=== PATIENT | female | born 1995 | race Caucasian/White ===

== ENCOUNTER 2020-09-06 08:16 | Outpatient (CLI) | payer MEDICAID, SELFPAY ==
--- NOTE | 2020-09-06 08:24 | FL_ITS ---
WS: [id number] UPPER GI WITH AIR TECHNICAL: Double contrast upper GI with thin and thick barium. FLUOROSCOPY TIME: 2.6 minutes CLINICAL INFORMATION: Z71.89 - Other specified counseling COMPARISON: None. FINDINGS: Swallowing: Normal. Esophagus: Normal esophageal motility. No stricture or obstructing mass. Gastroesophageal reflux: Small amount of reflux is observed in the supine position into the distal es ophagus. Tiny esophageal hiatal hernia. Stomach: Normal double contrast stomach. Duodenum: Normal duodenal C-loop. Other findings: Cholecystectomy clips. FL/FL upper GI w air* [id number] IMPRESSION: 1. Normal esophageal motility. No stricture or obstructing mass. 2. Small amount of reflux in the supine position with a tiny esophageal hiatal hernia. 3. Double contrast stomach and duodenal C-loop are normal.
== END 2020-09-06 08:17 | disposition home or self-care (01) ==
PROVIDERS: PCP Nurse Practitioner; Visit Provider Surgery
DX: Z71.89 Other specified counseling (principal); K21.9 Gastro-esophageal reflux disease without esophagitis; K44.9 Diaphragmatic hernia without obstruction or gangrene
CPT/HCPCS: 74246

== ENCOUNTER → 2020-11-02 11:08 | Outpatient (BNVA) | payer MEDICAID, SELFPAY | PROVIDERS: PCP Nurse Practitioner; Visit Provider Surgery | DX: Z20.822 Contact with and (suspected) exposure to COVID-19 (principal) | CPT/HCPCS: 87635 ==

== ENCOUNTER 2020-11-07 08:14 | Day surgery (SDC) | payer MEDICAID, SELFPAY ==
[2020-11-05 15:08] VITALS: BMI 19.7
--- NOTE | 2020-11-07 08:28 | W.PM.OPSFHP ---
Same Day Surgery H&P Indication for Procedure/HPI DATE OF PROCEDURE: November 07, 2020 CHIEF COMPLAINT/INDICATIONFOR SURGICAL PROCEDURE: I am here for endoscopy PREOP DIAGNOSIS: Prebariatric surgery screening PLANNED PROCEDRUE: Operation Date: 11/07/20 09:45 Proposed Procedures p EGD with poss biopsy 65616 k21.9(Not Applicable) - Hussein Portillo MD This is a pleasant 25 years old for this is a pleasant 25 years old female patient morbidly obese with a BMI around 50, undergone upper GI study in preparation for weight loss surgery that showed; 1. Normal esophageal motility. No stricture or obstructing mass. 2. Small amount of reflux in the supine position with a tiny esophageal hiatal hernia. 3. Double contrast stomach and duodenal C-loop are normal. Based on that patient was counseled for preop EGD ROS All systems have been reviewed negative except as per the above or per problem list Medications/Allergies* Home Medications Medication Instructions Recorded Confirmed Type bupropion HCl 150 mg tablet,12 hr 150 mg PO BID 08/30/20 11/07/20 History sustained-release Allergies/Adverse Reactions Allergy/AdvReac Type Severity Reaction Status Date / Time No Known Allergies Allergy Verified 11/07/20 10:08 Pertinent History/Comorbid Conditions* Family History (Updated 05/17/20 @ 15:46 by Heidy Andrews RN) Diabetes Grandfather Hyperlipidemia Grandfather Hypertension Grandfather Denies family history of Anesthesia complication Bleeding disorder Social History Smoking and tobacco status: never smoked Pertinent Exam Findings alert, clear to auscultation bilaterally, regular rate & rhythm and procedure specific exam findings (Abdominal examination nontender nondistended soft) Recommendations Surgery/Procedure today (EGD with possible biopsy) Other Plans: Plan of care; After thorough history and physical examination and reviewing the chart, plan to perform a diagnostic esophagogastroduodenoscopy with possible biopsy in the GI lab. I discussed with the patient in detail the risk,benefits,alternatives and indications.The risk of aspiration, bleeding, soft tissue injury, perforation of the stomach/esophagus and other potential concomitant complications were explained to the patient in details,aslo the potential need for Thoracic and or Abdominal surgery to repair any complications.The patient understood this well and did agree to proceed. Rationale was carefully and clearly discussed with the patient.Appropriate informed consent have been reviewed and signed All questions have been answered and all concerns have been addressed to patient's satisfaction. Coding Level of Care Code Acute Anthropology And Archeology Instructor for Elijah Dye
[2020-11-07 08:42] VITALS: BP 126/83; PULSE 73; RESP 18; TEMP 36.1; O2SAT 98; BMI 52.0
[2020-11-07] MEDS: sodium chloride 0.9% 1,000 ML 30 ML IV (09:08)
--- NOTE | 2020-11-07 09:36 | ANES.PREANE2 ---
Pre-Anesthetic Assessment Pre-Anesthetic Assessment: Height/Weight: Height 1.68 m Weight 146.057 kg Temp Pulse Resp BP Pulse Ox 97.0 F L 73 18 126/83 98 11/07/20 08:42 11/07/20 08:42 11/07/20 08:42 11/07/20 08:42 11/07/20 08:42 Preop Diagnosis: Prebariatric surgery screening Proposed Procedure: Operation Date: 11/07/20 09:45 Proposed Procedures p EGD with poss biopsy 25167 k21.9(Not Applicable) - Hussein Portillo MD Familial anesthetic complications: none Was Beta Latrice taken within 24 hours: N/A Was Clonidine taken within 24 hours: N/A Last intake: Intake Last Liquid Date 11/06/20 Last Liquid Time 23:00 Last Solid Date 11/06/20 Last Solid Time 18:00 Social: Social History: No alcohol and No tobacco Exam: Pre-Anes Outpt Exam: alert, oriented x 3, clear to auscultation bilaterally and regular rate & rhythm Airway: Submandibular: WNL Cervical ROM: WNL MP: 2 Dentition: Full History/ROS: No significant history except as noted Pulmonary: Pulmonary: None reported CV/HEM: CV/HEM: None reported : : None reported Hepatic: Hepatic: None reported GI: GI: None reported Metabolic: Metabolic: Morbid obesity and None reported Musc/skel: Musc/skel: None reported Neuropsych: Neuropsych: Anxiety and Depression Anesthetic Plan: ASA status: 3 Anesthesia: MAC Risk of > 500 ml blood loss (7ml/kg in children): No Meds/Allergies Current Medications: Current Medications Generic Name Dose Route Start Last Admin Trade Name Freq PRN Reason Stop Dose Admin Sodium Chloride 1,000 mls @ 30 ml s/hr 11/07/20 08:45 11/07/20 09:08 Sodium Chloride 0.9% IV 11/08/20 08:44 30 mls/hr .Q24H EARLINE Administration PFSH Anesthesia PFSH: Family History Grandfather Diabetes Hypertension Hyperlipidemia Denies family history of Anesthesia complication Bleeding disorder Social History Smoking and tobacco status: never smoked Data Anesthesia Cardiac Studies: No Data to Display
[2020-11-07 11:05] VITALS: BP 133/75; PULSE 72; RESP 16; TEMP 36.2; O2SAT 99
[2020-11-07 11:15] VITALS: BP 110/74; PULSE 77; RESP 16; O2SAT 99
--- NOTE | 2020-11-07 11:27 | ANE.PACU2 ---
Inpatient post-anesthesia follow up: Airway intact: Yes Vital signs: Temperature 97.2 F Pulse Rate 77 Respiratory Rate 16 Blood Pressure 110/74 Pulse Oximetry 99 Oxygen Delivery Me thod Room Air Oxygen Flow Rate Fraction of Inspir ed Oxygen Hydration adequate: Yes Mental status: Baseline
[2020-11-08 06:35] LABS: H. Pylori / CLO Test Negative
== END 2020-11-07 11:38 | disposition home or self-care (01) ==
PROVIDERS: PCP Nurse Practitioner; Visit Provider Surgery
PROC: 0DJ08ZZ Inspection of Upper Intestinal Tract, Via Natural or Artificial Opening Endoscopic (ICD-10-PCS; CPT 43235; principal; 2020-11-07 09:45)
DX: K21.9 Gastro-esophageal reflux disease without esophagitis (principal); K29.70 Gastritis, unspecified, without bleeding; K29.80 Duodenitis without bleeding; E66.01 Morbid (severe) obesity due to excess calories; Z68.43 Body mass index [BMI] 50.0-59.9, adult
CPT/HCPCS: 43239; 87077; 96360; 96361; J2704; J7030

== ENCOUNTER → 2021-07-17 13:31 | Outpatient (BNVA) | payer MEDICAID, SELFPAY | PROVIDERS: PCP Family Medicine; Visit Provider Surgery | DX: E66.01 Morbid (severe) obesity due to excess calories (principal) ==

== ENCOUNTER 2021-07-17 15:17 | Outpatient (CLI) | payer MEDICAID, SELFPAY ==
[2021-07-17 16:10] LABS: Basophils % 0.5 %; Eosinophils # 0.1 10^3/uL (0.0-0.8); Eosinophils % 1.8 %; Hematocrit 39.5 % (37.0-47.0); Hemoglobin 12.8 g/dL (11.5-15.3); Lymphocytes # 1.6 10^3/uL (0.8-4.8); Lymphocytes % 28.5 %; Mean Corpuscular HGB Conc 32.4 g/dL (30.0-36.0); Mean Corpuscular Hemoglobin 27.1 pg (28.0-34.0); Mean Corpuscular Volume 83.5 fl (81-99); Mean Platelet Volume 10.5 fL (7.4-10.4); Monocytes # 0.6 10^3/uL (0.2-0.9); Monocytes % 9.9 %; Neutrophils # 3.33 10^3/uL (1.8-7.7); Neutrophils % 59.1 %; Nucleated Red Blood Cells % 0 %; Platelet Count 295 10^3/cmm (130-400); Red Blood Count 4.73 10^6/uL (4.1-5.3); Red Cell Distribution Width 13.8 % (12.1-15.1); White Blood Count 5.6 10^3/uL (4.0-10.0)
[2021-07-17 16:50] LABS: Alanine Aminotransferase 18 U/L (0-33); Albumin Level 4.4 g/dL (3.5-5.2); Alkaline Phosphatase 68 IU/L (35-105); Anion Gap 17.2 (5-19); Aspartate Amino Transferase 13 U/L (0-32); Blood Urea Nitrogen 16 mg/dL (6-20); Calcium 10.1 mg/dL (8.5-10.5); Carbon Dioxide 23 mmol/L (22-29); Chloride 103 mmol/L (98-107); Chol HDL Ratio 4.55 mg/dL (0.0-4.40); Cholesterol 150 mg/dL (0-200); Ferritin 109 ng/mL (15-150); Globulin 3.4 g/dL (1.3-4.6); Glomerular Filtration Rate 76.9 mL/min (90-130); Glucose 89 mg/dL (65-115); HDL Cholesterol 33 mg/dL (60-100); Iron 39 ug/dL (37-145); LDL Cholesterol Calculated 101 mg/dL (50-129); LDL HDL Ratio 3.06 RATIO (0.00-3.22); Magnesium 1.7 mg/dL (1.7-2.3); Osmolality Calculated 289 mOsm/kg (285-295); Percent Saturation 14.2 % (20-50); Potassium 4.2 mmol/L (3.5-5.1); Sodium 139 mmol/L (136-145); Thyroid Stimulating Hormone 0.61 uIU/mL (0.27-4.20); Total Bilirubin 0.3 mg/dL (0.15-1.2); Total Iron Binding Capacity 273 mcg/dl; Total Protein 7.8 g/dL (6.6-8.7); Triglycerides 82 mg/dL (0-150); Unsaturated Iron Binding 234 ug/dL (112-347); Vitamin B12 586 pg/mL (232-1245)
[2021-07-17 17:32] LABS: Folate Level 7.7 ng/mL (4.8-37.3)
[2021-07-17 17:37] LABS: Calcium 10.2 mg/dL (8.5-10.5); Parathyroid Hormone 16.4 pg/mL (15-65)
[2021-07-21 09:57] LABS: Zinc Level, Serum or Plasma 69 mcg/dL (60-130)
[2021-07-21 13:51] LABS: Vit D 1,25 (Oh)2, Total 33 pg/mL (18-72); Vit D2 1,25 (Oh)2 <8 pg/mL; Vit D3 1,25 (Oh)2 33 pg/mL
[2021-07-21 14:02] LABS: Vitamin B1(Thiamin) Plas/Ser <7 nmol/L (8-30)
== END 2021-07-17 15:18 | disposition home or self-care (01) ==
LOC: LAB 15:20
PROVIDERS: PCP Family Medicine; Visit Provider Surgery
DX: E88.81 Metabolic syndrome and other insulin resistance (principal)
CPT/HCPCS: 36415; 80053; 80061; 82310; 82607; 82652; 82728; 82746; 83540; 83550; 83735; 83970; 84425; 84443; 84630; 85025

== ENCOUNTER 2021-07-23 09:29 | Inpatient (IN) | payer MEDICAID, SELFPAY ==
[2021-07-17 14:45] VITALS: BMI 47.4
--- NOTE | 2021-07-17 15:00 | P.ANESASSM_ITS ---
Pre-Anesthetic Assessment Height/Weight: Height 1.68 m Weight 133.356 kg Preop Diagnosis: Prebariatric surgery screening Operation Date: 07/23/21 07:00 Proposed Procedures p Laparoscopic Gastric Sleeve w/ EGD [id number]/39281/e66.01(Not Applicable) - Hussein Portillo MD Familial anesthetic complications: None Was Beta Latrice taken within 24 hours: N/A Was Clonidine taken within 24 hours: N/A Social No alcohol and No tobacco (h/o smoking) Exam alert, oriented x 3, clear to auscultation bilaterally and regular rate & rhythm Airway Submandibular: within normal limits Cervical ROM: within normal limits Mallampati: Class II Dentition: full Pulmonary Sleep Apnea GI Gastroesophageal Reflux Disease Metabolic Morbid Obesity and Thyroid Disease Neuropsych Anxiety, Bipolar and Depression Anesthetic Plan ASA status: 3 Anesthesia: General Medications/Allergies Home Medications Medication Instructions Recorded Confirmed Last Taken Type risperidone 0.5 mg tablet 0.5 mg PO BID 02/27/21 07/17/21 07/17/21 History levothyroxine 25 mcg capsule 75 mcg PO DAILY cap 04/10/21 07/17/21 07/17/21 H istory hydroxyzine HCl 25 mg tablet 25 mg PO TID PRN 06/11/21 07/17/21 07/16/21 History phentermine 37.5 mg capsule 37.5 mg PO DAILY 06/11/21 07/17/21 07/15/21 History Allergies Allergy/AdvReac Type Severity Reaction Status Date / Time No Known Allergies Allergy Verified 07/17/21 14:03 [facility] Anesthesia Medical History BMI 50.0-59.9, adult Morbid obesity HIREN (obstructive sleep apnea) Psychiatric care Family History Grandfather Diabetes Hypertension Hyperlipidemia Denies family history of Anesthesia complication Bleeding disorder Social History Smoking and tobacco status: former smoker Female Reproductive History Date of last menstrual period: 07/02/21 Data Anesthesia Cardiac Studies: No Data to Display
[2021-07-23] VITALS (25 sets, daily range): BP systolic 97–143; BP diastolic 49–96; PULSE 68–90; RESP 13–18; TEMP 36.4–37.4; O2SAT 85–99; BMI 47.1
--- NOTE | 2021-07-23 06:05 | W.PM.OPSUD ---
Surgery/Procedure H&P Update DATE OF PROCEDURE: July 23, 2021 DATE H&P PERFORMED: 07/17/21 H&P UPDATE INFORMATION: I have reviewed H&P completed within last 30 days, I have examined patient prior to procedure and Changes to prior documentation as noted here CHANGES TO PREVIOUS DOCUMENTATION: Patient reports that she lost 17 pounds since she was started on liquid protein diet. PREOP DIAGNOSIS: Prebariatric surgery screening PRIMARY INDICATION FOR PROCEDURE: The same PLANNED PROCEDURE: Operation Date: 07/23/21 07:00 Proposed Procedures p Laparoscopic Gastric Sleeve w/ EGD [id number]/e66.01(Not Applicable) - Hussein Portillo MD
[2021-07-23 06:10] LABS: OR HCG Qualitative Urine Negative (Negative)
[2021-07-23] MEDS: pantoprazole 40 mg SDV IVP (06:25)
[2021-07-23] MEDS: sodium chloride 0.9% 1,000 ML 999 ML IV (06:25)
[2021-07-23] MEDS: scopolamine 1.5 Patch 1 PATCH TRANSDERMA (06:30)
[2021-07-23] MEDS: acetaminophen 1,000 MG/100 ML PIGGYBACK 400 MG IV ×2 (06:30→15:25)
[2021-07-23] MEDS: heparin 5,000 unit/mL INJ 1 mL 5000 UNIT SUBCUT (06:35)
--- NOTE | 2021-07-23 06:54 | P.ANESUD_ITS ---
Pre-Anesthetic Update Pre-Anesthetic Assessment: Date of Surgery/Procedure: 07/23/21 Preop Lyndsey gnosis: Prebariatric surgery screening Proposed Procedure: Operation Date: 07/23/21 07:00 Proposed Procedures p Laparoscopic Gastric Sleeve w/ EGD [id number]/[id number]/e66.01(Not Applicable) - Hussein Portillo MD Any changes to Pre-Anesthetic Assessment?: No Last Intake: Intake Last Liquid Date 07/22/21 Last Liquid Time 23:20 Last Solid Date 07/22/21 Last Solid Time 11:00 Vitals: Temperature 97.8 F 07/23/21 06:04 Temperature Source Temporal Artery S can 07/23/21 06:04 Pulse Rate 80 07/23/21 06:04 Respiratory Rate 16 07/23/21 06:04 Blood Pressure 98/87 07/23/21 06:04 Blood Pressure Olya n 90 07/23/21 06:04 Pulse Oximetry 97 07/23/21 06:04 Oxygen Delivery Me thod 07/23/21 06:04 Exam: Pre-Anes Outpt Exam: alert, oriented x 3, clear to auscultation bilaterally and regular rate & rhythm Cardiac Studies: No Data to Display
[2021-07-23] MEDS: sodium chloride 0.9% 1,000 ML 30 ML IV (07:10)
[2021-07-23] MEDS: ceFAZolin 1,000 mg SDV 1000 MG IVP (07:15)
[2021-07-23] MEDS: sodium chloride 0.9% 50 ML (08:13)
--- NOTE | 2021-07-23 08:28 | SUR.OPER ---
family updated of surgical status
--- NOTE | 2021-07-23 09:07 | SUR.OPER ---
family updated of surgical status
--- NOTE | 2021-07-23 09:14 | P.OP_ITS ---
Operative Report Date of procedure: July 23, 2021 Pre-op diagnosis: Preop Diagnosis obesity Post-op diagnosis: The same Procedure done: Laparoscopic vertical sleeve gastrectomy and EGD Implants: Small piece of Surgicel towards the superior pole of the Specimens removed/disposition: Subtotal gastrectomy with sutures marked proximal with gastric sleeve Surgeon: Hussein Portillo MD Assistant Activities Director: Surgical Edwin Dailey Anesthesia: General (GETA TECHNICAL TRAINING INSTRUCTOR Corrina) Estimated blood loss (mL): 20 IV fluids (mL): 2,200 Urine output: 100 Procedure: Patient was identified in the holding area, appropriate pharmacologic DVT prophylaxis was given and preoperative IV fluid hydration, patient was then taken to the operating room where the patient was placed in supine position, intubated by anesthesia prophylactic antibiotics were given per protocol, Time- out was done verifying the patient's name/date of /planned procedure and destination after the procedure, all were in agreement.SCDs confirmed to be functioning, and beta kentrell protocol was confirmed. A Benson catheter was inserted by the circulating nurse revealing clear urine. A foot board was applied to secure the patient while the patient is placed in reversed Trendelenburg, all pressure points were padded, and the patient was appropriately secured to the table, anesthesia was asked to rotate the table back and forth to verify that the patient is appropriately secured, and that was the case. The abdomen was prepped and draped under the usual sterile technique. A transverse incision was made with a 15 blade scalpel approximately 15 cm below the xiphoid process and 3 cm left of the midline. A 5 mm optical trocar port was placed under direct vision into the peritoneal cavity without initial evidence of injury to peritoneal structures upon entry. The peritoneal cavity was insufflated with carbon dioxide gas up to 15 mmHg pressure. A 45? angle laparoscopy was placed through the port into the peritoneal cavity there was no significant blood, fluid, or evidence of intra- abdominal injury under direct visualization, Longer trocars were then used; a 12 mm trocar port was placed in the right epigastric region and a fourth 5 mm trocar port was placed in the mid epigastric region more caudad than and medial to the previous port. A 5 mm trocar port was placed in the left lateral flank and additional 5 mm trocar was inserted midway between the left lateral flank trocar and the initial 5 mm trocar. There after the index 5 mm trocar was switched to a 12 mm trocar under direct visualization after extending the skin incision. I lifted the omentum up to make sure there were no injuries encountered from the initial trocar insertion, the underlying transverse colon and small bowel viscera were normal, except for a very superficial tear of the mesentery of the proximal small bowel without bleeding but I elected to put at 2-0 silk suture secure hemostasis, there was no violation of the mesentery blood supply and the bowel maintained to be viable. A subxiphoid stab incision was made and dissection into the peritoneum with 5 mm obturator. A grasping laparoscopic clamp was inserted through here and clamped to the right mat of the diaphragm to elevate the liver for the entirety of the case. All trocars inserted were long arc trocars due to the thick layer of subcutaneous tissue that the patient has.Patient was then placed in the reversed Trendelenburg. Following this, the greater curvature of the stomach was freed from the omentum using the ENSEAL device. This division included the short gastric vessels proximally. This dissection was carried from approximately 4 cm-6 cm proximal to the pylorus and extending all the way up to the angle of Hiss. During this process the posterior aspect of the stomach was mobilized from the underlying peritoneum and the posterior aspect of the stomach was well exposed. With the greater curvature of the stomach exposed from within 4-6 cm of the pylorus and extending to the angle of Hiss, which also included the posterior stomach, a 40 Swedish standard template passed under direct vision down the esophagus, stomach, and into the first part of the duodenum by the anesthesia provider and under direct guidance and visualization by me, via the laparoscopy. Using the template 40 Swedish aligned along the lesser curvature of the stomach and all the way to the first part of the Duodenum, the 40 Swedish Bougie was used as a template the laparoscopic vertical gastric sleeve was performed starting from a point about 5 cm from the pylorus along the greater curvature. Using the [employer] Laparoscopic BALDEMAR linear cutting stapler with [employer] Endopath enforcement, a series of jaylon were used to transect the stomach in a vertical fashion along the left side of the template. Through the entire division of the stomach using the staplers, the template was always checked to be in good place and well aligned to the lesser curvature while dividing the stomach. This was carried all the way to the angle of Hiss. [place] 60 mm Green loads were used for the distal third of the stomach and Gold loads were used for the more proximal part of the stomach and then blue loads with reinforcement. All staplers were reinforced by Endopath. The staple line along the remaining tubularized stomach was tested for leaks and bleeding under direct vision as the 40 Swedish template was exchanged (and there was no evidence of blood on the tip of the template) by a standard diagnostic EGD via the mouth by my me after I scrubbed out, insufflation was achieved using CO2 gas and the staple line submerged under saline, meanwhile a clamp was applied distally onto the end of the tubularized stomach to allow insufflation test for leak. There was no evidence of leak .There was adequate hemostasis along the staple line.EGD was taken out at this point after deflation of the tubularized stomach. I scrubbed the back in. The transected partial stomach, which included the greater curvature, was removed from the peritoneum through the first 12 mm trocar site, and was sent for permanent pathology. Prior to closure of the fascia. A final look laparoscopy identified no injuries or bleeding. There was minimal oozing at the time of the dissection of the short gastrics earlier but that was controlled by using Enseal device and a small piece of Surgicel was added. Towards the superior pole of the spleen Bilateral TAP (transversus abdominous plain peripheral nerve block) block using Exparel 20 mL Exparel,40 ml Normal saline,20 ml bupivacaine 0.25% 30 mL on each side injected, 20 mL injected the port sites. An interrupted #1 PDS suture on a granny needle suture passer was used to close the right epigastric and the other 12 mm trocar left of the midline fascial defects under direct visualization. The other trocars were removed under direct vision and no evidence of bleeding was identified. The pneumoperitoneum was decompressed. All skin incisions were irrigated with saline, then closed with jaylon, followed by application of sterile dressings. The patient was extubated and taken to the recovery room with normal vital signs. Benson catheter was maintained All counts of instruments, sponges and needles were completed at the end of the procedure I was present for the whole entire procedure
--- NOTE | 2021-07-23 09:40 | SUR.PHASEI ---
0931 PT TO PACU SLEEPY WITH ORAL AIRWAY IN PLACE, GOOD RESPIRATORY EFFORT NOTED SATS INCREASING TO 94% NO OBSTRUCTION OR DISTESS NOTED, NO CREPITIS NOTED TO NECK OR CHEST AREA, ABDOOMEN SOFT WITH 5 SITES WITH BANDAIDS D/I , TORRE CATHETER TO DEPENDANT DRAINAGE WITH STATLOCK TO LT INNER THIGH, YELLOW CLEAR URINE TO TUBING AND BAG. BILAT SCDS ON AND WORKING, HOB AT 30 DEGREES, IV TO RT WRIST #20 HEPLOCKED , IV TO LT HAND #20 WITH NS 700ML UP AT KVO RATE PER GRAVITY. ID BRACELET TO RT WRIST , PT ID'D WITH 2 IDENTIFIERS, WARM BLANKETS TO PT.
--- NOTE | 2021-07-23 10:02 | SUR.PHASEI ---
PT AWAKES AND ORAL AIRWAY OUT, PT WITH ADEQUATE RESPIRATIONS SATS 97% ON 8L O2 MASK. NO DISTRESS NOTED.MONITOR SR NO ECTOPY.
--- NOTE | 2021-07-23 10:04 | SUR.PHASEI ---
ABDOMEN REMAINS SOFT AND SURGICAL SITES UNCHANGED, NO CREPITUS NOTED TO NECK AND SHOULDERS.
--- NOTE | 2021-07-23 10:10 | SUR.PHASEI ---
PT AWAKES MORE AND NODS NO TO QUESTIONS OF PAIN AND NAUSEA, PT SATS ON RA ARE 92% PT PLACED ON 2LNC TO KEEP SATS OVER OR AT 94% , PT QUICKLY BACK TO SLEEP, NO S/S OF DISTRESS.
--- NOTE | 2021-07-23 10:12 | SUR.PHASEI ---
PT IN WAITING ROOM , UPDATED PT IS STABLE AND RESTING, WILL GO TO ROOM IN APPROX 45 MINUTES, PT TO GO EAT AND THEN GO TO PT FLOOR ROOM. NO ISSUES OR PROBLEMS VOICED.
[2021-07-23] MEDS: fentaNYL 50 mcg/mL INJ 2mL IVP (10:19)
[2021-07-23] MEDS: morphine 4 mg/mL SDV 1 mL 2 MG IVP ×2 (12:29→21:32)
--- NOTE | 2021-07-23 12:32 | ECG_ITS ---
[facility] Test Date: 2021-07-23 Pat Name: Martha Saunders Department: Room: 254 Gender: Female Decay Control Operator: : 1995 Requested By: Hussein Portillo Order Number: [id number] Nia MD: Hiro Beck M.D. Measurements Intervals [place] Rate: 75 P: 45 MS: 171 QRS: 34 QRSD: 96 T: 29 QT: 406 QTc: 455 Interpretive Statements SINUS RHYTHM WITH SINUS ARRHYTHMIA NONSPECIFIC T-WAVE ABNORMALITY No previous ECG available for comparison Electronically Signed On 07-23-2021 17:25:29 CDT by Hiro Beck M.D. [id number] f
--- NOTE | 2021-07-23 12:51 | PM.MISC ---
Miscellaneous Note Purpose of Documentation: Chest Pain Post OP Note: S: I received notification that patient was having CP. At bedside RN reports patient complained of CP elephant on chest. O: EKG ordered by Dr. Galindo, looks reassuring. VSS. On NC 96% p 70-80s, BP WNL, respirations 14-18. Patient states has chest pain in upper left chest radiating to posterior left shoulder, no jaw or arm pain. On palpation of left sternum and upper ribs patient had exquisite pain which reproduced the pain she has been having. Dressing sites clean and intact. A/P: I think this is post operative musculoskeletal pain and gas associated pain due to abdominal insufflation in bariatric patient who underlying anxiety and has had difficult to control surgical pain at the incision/surgical sites. Will rule out myocardial ischemia/aortic dissection. CXR ordered. Troponins pending. Hospitalist consulted by Dr. Galindo.
--- NOTE | 2021-07-23 12:52 | XR_ITS ---
WS: [id number] XR chest 1V portable [id number] REASON FOR EXAM: CHEST PAIN FINDINGS: Suboptimal inspiration with low volume lungs. The heart and mediastinum are within normal limits. Presumed bilateral diaphragmatic elevation. Less likely subpulmonic effusions. Reticular interstitial and patchy groundglass lung opacities in the left lower lung. XR/XR chest 1V portable [id number] IMPRESSION: Presumed subacute pneumonitis left lower lung.
--- NOTE | 2021-07-23 13:03 | PM.CONSULT ---
Providers/Reason For Consult Consulting Physician/Specialty*: Dr. Trinidad/Internal Medicine Reason for Consult*: Chest Pain Requesting Physician: Dr. Epps Attending Physician: Hussein Portillo MD Primary Care Provider: Idalia Robledo DO History of Present Illness History of Present Illness I was consulted by general surgery for evaluating patient for chest pain status post sleeve gastrectomy performed today. Postop day 0Ioana Saunders is a 26 year old female with past medical history of obstructive sleep apnea, morbid obesity, hypothyroidism, GERD, depression, anxiety, chronic back pain presented to the hospital today for a scheduled sleeve gastrectomy performed this morning. Few hours after surgery patient started complaining of chest pain that was located in her epigastric region radiating towards left shoulder. The pain was at times constant and at times intermittent. It was related to position and upon taking a deep breath. Pain was also reproducible with palpation. She denied any shortness of breath at this time. Family present at bedside. It also hurt more when she moved her left arm. Troponin negative. Second troponin pending. EKG did not show any evidence of ischemia. Chest x-ray showed hypoinflated lungs elevated diaphragm bilaterally. Patient unable to take a deep breath due to pain. Incentive spirometer available at bedside. IV Tylenol being hung as I was seeing the patient. Patient does carry a diagnosis of peripheral sleep apnea and supposed to wear CPAP at night. However she states she only wears it sometimes. Medications/Allergies Home Medications Medication Instructions Recorded Confirmed Last Taken Type risperidone 0.5 mg tablet 0.5 mg PO BID 02/27/21 07/23/21 07/22/21 History levothyroxine 25 mcg capsule 75 mcg PO DAILY cap 04/10/21 07/23/21 07/22/21 History hydroxyzine HCl 25 mg tablet 25 mg PO TID PRN 06/11/21 07/23/21 07/22/21 History phentermine 37.5 mg capsule 37.5 mg PO DAILY 06/11/21 07/19/21 07/15/21 History Allergies Allergy/AdvReac Type Severity Reaction Status Date / Time No Known Allergies Allergy Verified 07/23/21 06:02 Current Medications Generic Name Dose Route Start Last Admin Trade Name Freq PRN Reason Stop Dose Admin Famotidine 20 mg 07/23/21 09:30 07/23/21 11:02 Famotidine 20 Mg/2 Ml Inj IVP Not Given Q12H [facility] Fentanyl 50 mcg 07/23/21 07:14 07/23/21 10:19 Fentanyl 50 Mcg/Ml Inj 2ml IVP 07/24/21 07:14 50 mcg Q5M PRN Administration Pain level 1-6 PACU Phase I Lactated Ringer's 1,000 mls @ 150 mls/hr 07/23/21 09:30 07/23/21 11:03 Lactated Ringers IV Not Given .Q6H40M [facility] Morphine Sulfate 2 mg 07/23/21 09:19 07/23/21 12:29 Morphine 4 Mg/Ml Sdv 1 Ml IVP 2 mg Q2H PRN Administration SEVERE PAIN Scopolamine 1 patch 07/23/21 09:30 07/23/21 11:03 Scopolamine 1.5 Patch TRANSDERMA Not Given Q3D EARLINE PFSH Acute PFSH: Medical History BMI 50.0-59.9, adult Morbid obesity HIREN (obstructive sleep apnea) Psychiatric care Family History Grandfather Diabetes Hypertension Hyperlipidemia Denies family history of Anesthesia complication Bleeding disorder Social History Smoking and tobacco status: former smoker Female Reproductive History: Date of last menstrual period: 07/02/21 Vitals/I&O/Wt Last Vital Signs Temp 97.6 F 07/23/21 10:30 Pulse 73 07/23/21 11:29 Resp 17 07/23/21 12:29 BP 124/91 07/23/21 10:30 Pulse Ox 92 07/23/21 12:29 07/22/21 07/23/21 07/23/21 22:59 06:59 14:59 Intake Total 100 / 100 2350 / 2350 Output Total 120 / 120 Balance 100 / 100 2230 / 2230 Weight last 48 hrs Weight 132.449 kg Physical Exam Narrative: General: Alert oriented x3, patient seen laying in bed appearing uncomfortable due to pain. HEENT: Normocephalic, atraumatic, EOMI, breathing normally on room air Cardio: Regular rate rhythm, normal S1-S2, no murmurs, chest pain reproducible to palpation around epigastric region and left side of chest. Respiratory: Clear to auscultation with diminished at bases. GI: Abdomen soft, mildly tender around laparoscopic incision sites, nondistended, bowel sounds + Behavior: Appropriate Extremities: There is edema bilateral lower extremities Urinary Catheter Management: Benson Latex: Cath Placed During This Visit: yes Urinary Catheter Date of Insertion: 07/23/21 Urinary Catheter Time of Insertion: 07:18 A&P Assessment and plan (1) Psychiatric care: Status: Acute (2) HIREN (obstructive sleep apnea): Status: Acute (3) Morbid obesity: Status: Acute (4) Chest pain: Status: Acute Plan #Chest pain #Hypothyroidism #GERD #Depression ? Her chest pain is very atypical and is most likely musculoskeletal and postop related. I counseled patient that she had surgery and pain is to be expected at this time. We will try to manage her pain. IV Tylenol is on board. Troponin negative, EKG negative for ischemia, chest x-ray also reviewed. ? We can place lidocaine patch on her shoulder area which might help. We will try this if Tylenol does not help. ? I do not believe her pain is cardiac in origin. We will continue to see her. -Continue levothyroxine and risperidone once able to take oral medication ? Famotidine IV twice daily ? Patient is supposed to have a upper GI series in a.m. ? Patient n.p.o. Full code Consult Attestations Medical Necessity Statement: As per primary team. Coding Level of Care Code Acute Health Information Specialist for [facility] Fwd Diagnoses Psychiatric care HIREN (obstructive sleep apnea) G47.33 Morbid obesity E66.01 Chest pain R07.9
[2021-07-23 13:48] LABS: Troponin(5th) Baseline 6 ng/L (0-10)
[2021-07-23] MEDS: lactated ringers 1,000 ML 150 ML IV ×2 (15:25→23:59)
[2021-07-23 17:04] LABS: Troponin 5 2HR Delta 0 ABS# (0-10)
[2021-07-23] MEDS: famotidine 20 mg/2 mL INJ IVP (21:00)
[2021-07-23] MEDS: ondansetron 2 mg/ML SDV 2 mL 4 MG IVP (21:01)
[2021-07-24] VITALS (11 sets, daily range): BP systolic 122–137; BP diastolic 73–81; PULSE 58–79; RESP 14–18; TEMP 36.9–37.3; O2SAT 90–95
[2021-07-24] MEDS: acetaminophen 1,000 MG/100 ML PIGGYBACK 400 MG IV (00:13)
[2021-07-24] MEDS: morphine 4 mg/mL SDV 1 mL 2 MG IVP ×4 (03:12→20:31)
[2021-07-24] MEDS: ondansetron 2 mg/ML SDV 2 mL 4 MG IVP ×3 (05:36→18:00)
[2021-07-24 06:05] LABS: Hematocrit 36.1 % (37.0-47.0); Hemoglobin 11.4 g/dL (11.5-15.3)
[2021-07-24] MEDS: lactated ringers 1,000 ML 150 ML IV ×2 (06:11→12:51)
[2021-07-24 06:53] LABS: Blood Urea Nitrogen 8 mg/dL (6-20); Calcium 8.4 mg/dL (8.5-10.5); Carbon Dioxide 20 mmol/L (22-29); Chloride 106 mmol/L (98-107); Glomerular Filtration Rate 122.8 mL/min (90-130); Glucose 83 mg/dL (65-115); Osmolality Calculated 281 mOsm/kg (285-295); Sodium 137 mmol/L (136-145)
[2021-07-24 06:54] LABS: Anion Gap 14.9 (5-19); Potassium 3.9 mmol/L (3.5-5.1)
--- NOTE | 2021-07-24 07:28 | ANE.PACU2 ---
Inpatient post-anesthesia follow up: Airway intact: Yes Vital signs: Temperature 99.1 F Pulse Rate 79 Respiratory Rate 18 Blood Pressure 123/76 Pulse Oximetry 94 Oxygen Delivery Me thod Room Air Oxygen Flow Rate 2 Fraction of Inspir ed Oxygen Hydration adequate: Yes Nausea and vomiting: No Pain level: 1 Mental status: Baseline
--- NOTE | 2021-07-24 08:00 | FL_ITS ---
WS: [id number] MA upper GI gastrografin [id number] REASON FOR EXAM: Status Post Gastric Sleeve FLUOROSCOPY TIME: 1min [id number] # OF SPOT FILMS: 5 FINDINGS: Patient was examined in the upright position using water-soluble contrast. The ingestion of barium wa s followed from the hypopharynx to the descending duodenum. The esophagus appeared unremarkable. Expected deformity of the body of the stomach post gastric sleeve procedure. Contrast flowed readily through the stomach and into the duodenum. No extravasation was identified. FL/FL upper GI gastrografin [id number] IMPRESSION: Normal examination post gastric sleeve procedure.
[2021-07-24] MEDS: famotidine 20 mg/2 mL INJ IVP ×2 (08:13→20:31)
[2021-07-24] MEDS: acetaminophen 1,000 MG/100 ML PIGGYBACK 100 MG IV ×2 (08:14→17:33)
--- NOTE | 2021-07-24 09:27 | PM.PN ---
Subjective Subjective: Patient overall feels well and denies any chest pain. Her pain is under better control. Adequate urine output. And labs are unremarkable. Patient was seen and evaluated by hospitalist service for chest pain postoperatively I do appreciate the consult Medications: Reviewed: Yes Vitals/I&O/Wt Last Vital Signs Temp 99.1 F 07/24/21 08:00 Pulse 76 07/24/21 08:00 Resp 18 07/24/21 08:00 BP 123/73 07/24/21 08:00 Pulse Ox 95 07/24/21 08:00 07/23/21 07/24/21 07/24/21 22:59 06:59 14:59 Intake Total 1100 / 3450 1030 / 4480 Output Total 850 / 970 450 / 1420 Balance 250 / 2480 580 / 3060 Weight last 48 hrs Weight 292 lb Physical Exam Narrative: Patient is conscious alert oriented X3 No apparent distress BMI 47.1 Head and neck examination PERRLA no masses no cervical lymphadenopathy no jaundice Cardiac examination audible S1-S2 no murmurs no gallops no arrhythmias Chest is clear bilateral,abscence of Rhonchi or wheezes,no surgical emphysema Abdomen nontender except slightly at the incision site nondistended soft no organomegaly guarding or rigidity/no signs of peritonitis Benson catheter in place with clear urine Extremities no cyanosis no clubbing no edema Urinary Catheter Management: Benson Latex: Cath Placed During This Visit: yes Reason for Continuing Indwelling Catheter: Required Immobilization for Trauma or Surgery or Anesthesia Urinary Catheter Date of Insertion: 07/23/21 Urinary Catheter Time of Insertion: 07:18 Data : 07/24/21 05:30 07/24/21 05:30 A&P Assessment and plan (1) Status post laparoscopic sleeve gastrectomy: Assessment 26 years old female patient status post laparoscopic sleeve gastrectomy 07/23/2021 Plan Encourage ambulation Incentive spirometer every hour DC Benson cath Continue pharmacologic DVT prophylaxis Awaiting upper GI study once this is cleared we will start the patient on post bariatric phase 1 diet Assurance and education All questions have been answered and all concerns have been addressed to patient's satisfaction. Status: Acute Attestations Medical Necessity Statement*: Patient requiring inpatient hospitalization for perioperative care and awaiting bowel function Coding Level of Care Code Acute [place] Erector Helper for [facility] Fwd Diagnoses Status post laparoscopic sleeve gastrectomy Z98.84
[2021-07-24] MEDS: diatrizoate meglumine 120 mL Sol PO (09:28)
--- NOTE | 2021-07-24 14:51 | PM.PN ---
Subjective Subjective: Seen this morning. Patient states she is feeling better and no longer having chest pain. Vitals/I&O/Wt Last Vital Signs Temp 98.6 F 07/24/21 11:49 Pulse 68 07/24/21 11:49 Resp 16 07/24/21 11:49 BP 126/80 07/24/21 11:49 Pulse Ox 94 07/24/21 11:49 07/23/21 07/24/21 07/24/21 22:59 06:59 14:59 Intake Total 1100 / 3450 1030 / 4480 1000 / 1000 Output Total 850 / 970 450 / 1420 300 / 300 Balance 250 / 2480 580 / 3060 700 / 700 Weight last 48 hrs Weight 132.449 kg Physical Exam Narrative: General: Alert oriented x3, patient seen laying in bed appearing comfortable. HEENT: Normocephalic, atraumatic, EOMI, breathing normally on room air Cardio: Chest pain not reproducible to palpation, normal S1-S2 Respiratory: Clear to auscultation Urinary Catheter Management: Benson Latex: Cath Placed During This Visit: yes Reason for Continuing Indwelling Catheter: Required Immobilization for Trauma or Surgery or Anesthesia Urinary Catheter Date of Insertion: 07/23/21 Urinary Catheter Time of Insertion: 07:18 Data : 07/24/21 05:30 07/24/21 05:30 A&P Assessment and plan (1) Status post laparoscopic sleeve gastrectomy: Status: Acute (2) Chest pain: Status: Acute (3) Psychiatric care: Status: Acute (4) HIREN (obstructive sleep apnea): Status: Acute (5) Morbid obesity: Status: Acute (6) BMI 50.0-59.9, adult: Status: Acute Plan #Chest pain #Hypothyroidism #GERD #Depression ? Her chest pain is very atypical and is most likely musculoskeletal and postop related.? I counseled patient that she had surgery and pain is to be expected at this time.? We will try to manage her pain.? IV Tylenol is on board.? Troponin negative, EKG negative for ischemia, chest x-ray also reviewed. ? I do not believe her pain is cardiac in origin.? -Patient no longer having chest pain. She is comfortable. -Continue levothyroxine and risperidone once able to take oral medication ? Famotidine IV twice daily Medicine will sign off. Please recall as needed. Full code Attestations Medical Necessity Statement*: Per primary team. Coding Level of Care Code Acute Advertising Traffic Manager for [facility] Fwd Diagnoses Status post laparoscopic sleeve gastrectomy Z98.84 Chest pain R07.9 Psychiatric care HIREN (obstructive sleep apnea) G47.33 Morbid obesity E66.01 BMI 50.0-59.9, adult Z68.43
[2021-07-24] MEDS: heparin 5,000 unit/mL INJ 1 mL 5000 UNIT SUBCUT (17:33)
[2021-07-24] MEDS: lactated ringers 1,000 ML 75 ML IV (18:12)
[2021-07-25] VITALS: BP 131/82; PULSE 69; RESP 17; TEMP 37.2; O2SAT 90
[2021-07-25] MEDS: lactated ringers 1,000 ML 75 ML IV (01:01)
[2021-07-25] MEDS: heparin 5,000 unit/mL INJ 1 mL 5000 UNIT SUBCUT ×2 (02:07→08:33)
[2021-07-25] MEDS: HYDROcodone-acetaminophen 5-325 mg Tablet 1 TAB PO ×2 (03:49→12:38)
[2021-07-25] MEDS: ondansetron 2 mg/ML SDV 2 mL 4 MG IVP (03:57)
[2021-07-25 04:00] VITALS: BP 124/82; PULSE 66; RESP 17; TEMP 37.1; O2SAT 94
[2021-07-25 06:00] VITALS: PULSE 101
[2021-07-25 06:30] LABS: Hematocrit 37.9 % (37.0-47.0); Hemoglobin 12.2 g/dL (11.5-15.3)
[2021-07-25 06:41] LABS: Anion Gap 13.4 (5-19); Blood Urea Nitrogen 8 mg/dL (6-20); Calcium 8.7 mg/dL (8.5-10.5); Carbon Dioxide 22 mmol/L (22-29); Chloride 106 mmol/L (98-107); Glomerular Filtration Rate 122.8 mL/min (90-130); Glucose 93 mg/dL (65-115); Osmolality Calculated 282 mOsm/kg (285-295); Potassium 4.4 mmol/L (3.5-5.1); Sodium 137 mmol/L (136-145)
[2021-07-25 07:42] VITALS: BP 126/80; PULSE 60; RESP 16; TEMP 37.1; O2SAT 92
--- NOTE | 2021-07-25 07:53 | P.PN_ITS ---
Subjective Subjective: Patient was seen and examined today and appears to be doing well. Her pain is under control and she does have adequate urine output. Vital signs maintain to be stable and tolerating p.o. intake. 07/24/2021 upper GI study did show Patient was examined in the upright position using water-soluble contrast. The ingestion of barium was followed from the hypopharynx to the descending duode num. The esophagus appeared unremarkable. Expected deformity of the body of the stomach post gastric sleeve procedure. Contrast flowed readily through the stomach and into the duodenum. No extravasation was identified. FL/FL upper GI gastrografin [id number] IMPRESSION: Normal examination post gastric sleeve procedure. ? Today's labs are reviewed and shows insignificant findings.patient is passing gas Medications: Reviewed: Yes Vitals/I&O/Wt Last Vital Signs Temp 98.8 F 07/25/21 07:42 Pulse 60 07/25/21 07:42 Resp 16 07/25/21 07:42 BP 126/80 07/25/21 07:42 Pulse Ox 92 07/25/21 07:42 07/24/21 07/25/21 07/25/21 22:59 06:59 14:59 Intake Total 1262.5 / 2362.5 1041.25 / 3403.75 Balance 1262.5 / 2062.5 1041.25 / 3103.75 Physical Exam Narrative: Patient is conscious alert oriented X3 No apparent distress BMI 47.1 Head and neck examination PERRLA no masses no cervical lymphadenopathy no jaundice Cardiac examination audible S1-S2 no murmurs no gallops no arrhythmias Chest is clear bilateral,abscence of? Rhonchi or wheezes,no surgical emphysema Abdomen nontender except slightly at the incision site nondistended soft no organomegaly guarding or rigidity/no signs of peritonitis Incisions are clean dry and intact and skin jaylon in place Extremities no cyanosis no clubbing no edema Urinary Catheter Management: Benson Latex: Cath Placed During This Visit: yes, but has since been removed by the nurse Reason for Continuing Indwelling Catheter: Decision to DC Catheter Urinary Catheter Date of Insertion: 07/23/21 Urinary Catheter Time of Insertion: 07:18 Date Urinary Catheter Removed: 07/24/21 Time Urinary Catheter Discontinued: 10:00 Data : 07/25/21 05:58 07/25/21 05:58 A&P Assessment and plan (1) Status post laparoscopic sleeve gastrectomy: (1) Status post laparoscopic sleeve gastrectomy: Assessment 26 years old female patient status post laparoscopic sleeve gastrectomy 07/23/2021 Plan Encourage ambulation Incentive spirometer every hour We will plan to discharge patient home today Assurance and education All questions have been answered and all concerns have been addressed to patient 's satisfaction. Status: Acute (2) Chest pain: Condition resolved. Status: Acute (3) Psychiatric care: Follow-up as an outpatient with psychiatry service Status: Acute (4) HIREN (obstructive sleep apnea): Continue CPAP machine Status: Acute (5) Morbid obesity: Continue adherence to post bariatric surgery diet Status: Acute (6) BMI 50.0-59.9, adult: Return to bariatric surgery office as scheduled Status: Acute Plan Full code Attestations Medical Necessity Statement*: Patient requiring inpatient hospitalization passing 2 midnights for perioperative care and resuming of bowel function Coding Level of Care Code Acute Oceanology Teacher for [facility] Fwd Diagnoses Status post laparoscopic sleeve gastrectomy Z98.84 Chest pain R07.9 Psychiatric care HIREN (obstructive sleep apnea) G47.33 Morbid obesity E66.01 BMI 50.0-59.9, adult Z68.43
[2021-07-25] MEDS: famotidine 20 mg/2 mL INJ IVP (08:33)
--- NOTE | 2021-07-25 09:56 | PC.NURSE ---
Resuming care from Meredith ZENDEJAS
[2021-07-25 11:21] VITALS: BP 132/83; PULSE 63; RESP 16; TEMP 36.8; O2SAT 90
--- NOTE | 2021-07-25 12:09 | P.DS_ITS ---
Discharge Providers Date of Admission: 07/23/21 09:29 Date of Discharge: July 25, 2021 Attending Provider at Admission: Hussein Portillo MD Attending Provider at Discharge: Hussein Portillo MD Primary Care Provider: Idalia Robledo DO Diagnoses at Discharge Discharge Diagnosis (1) Status post laparoscopic sleeve gastrectomy: Details from hospital stay: This is a pleasant 26 years old female patient status post laparoscopic sleeve gastrectomy, did well regarding postoperative course and maintained to have adequate urine output and stable vital signs. Met the appropriate criteria for safe discharge home Other Information Additional DC diagnoses/information: obesity related obstructive sleep apnea, chronic back pain, chest pain, and anxiety, dyspnea, GERD, depression and hypothyroidism.?? Reason for Visit Reason for Visit: morbid obesity Brief History: This is a pleasant 26 years old female patient with history of morbid obesity and associated multiple medical comorbidities.Based on the medical necessity met the appropriate indication for weight loss surgery in the form of laparoscopic vertical sleeve gastrectomy Hospital Course Hospital Course Patient undergone uneventful laparoscopic vertical sleeve gastrectomy.. Notably she did encounter some chest pressure but it was atypical. Further work-up was negative and hospitalist service was consulted for further evaluation. Patient continued to have stable vital signs and adequate urine output. GI study was done that showed normal and appropriate anatomy status post laparoscopic vertical sleeve gastrectomy maintained to have stable blood work. Continue to be on pharmacologic DVT prophylaxis. Tolerated p.o. intake with adequate urine output. Ambulate without assistance. And incentive spirometer every hour. Physical Exam Narrative: Patient is conscious alert oriented X3 No apparent distress BMI 47.1 Head and neck examination PERRLA no masses no cervical lymphadenopathy no jaundice Cardiac examination audible S1-S2 no murmurs no gallops no arrhythmias Chest is clear bilateral,abscence of? Rhonchi or wheezes,no surgical emphysema Abdomen nontender except slightly at the incision site nondistended soft no organomegaly guarding or rigidity/no signs of peritonitis Incisions are clean dry and intact and skin jaylon in place Extremities no cyanosis no clubbing no edema Urinary Catheter Management: Benson Latex: Cath Placed During This Visit: yes, but has since been removed by the nurse Reason for Continuing Indwelling Catheter: Decision to DC Catheter Urinary Catheter Date of Insertion: 07/23/21 Urinary Catheter Time of Insertion: 07:18 Date Urinary Catheter Removed: 07/24/21 Time Urinary Catheter Discontinued: 10:00 Discharge Data Studies Completed and Pending Completed Studies During Hospitalization Category Date Time Status FL upper GI gastrografin 26384 Routine Exams 07/24/21 08:00 Completed XR chest 1V portable 65108 Routine Exams 07/23/21 12:52 Completed Pathology: Surgical [PTH] Routine Pth 07/23/21 09:33 Completed Pending at discharge Category Date Time Status ES surgery / GI images Routine Exams 07/23/21 06:50 Taken Basic Metabolic Panel AM LABS Lab 07/26/21 04:00 Ordered Hemoglobin and Hematocrit AM LABS Lab 07/26/21 04:00 Ordered Radiology Impressions Chest X-Ray 07/23/21 12:52 IMPRESSION: Presumed subacute pneumonitis left lower lung. Gastrografin Study 07/24/21 08:00 IMPRESSION: Normal examination post gastric sleeve procedure. Laboratory Results Hgb 12.2 g/dL (11.5-15.3) 07/25/21 05:58 Hct 37.9 % (37.0-47.0) 07/25/21 05:58 Sodium 137 mmol/L (136-145) 07/25/21 05:58 Potassium 4.4 mmol/L (3.5-5.1) 07/25/21 05:58 Chloride 106 mmol/L (98-107) 07/25/21 05:58 Carbon Dioxide 22 mmol/L (22-29) 07/25/21 05:58 Anion Gap 13.4 (5-19) 07/25/21 05:58 BUN 8 mg/dL (6-20) 07/25/21 05:58 Creatinine 0.6 mg/dL (0.5-0.9) 07/25/21 05:58 GFR Calculation 122.8 mL/min (90-130) 07/25/21 05:58 Glucose 93 mg/dL (65-115) 07/25/21 05:58 Calculated Osmolality 282 mOsm/kg (285-295) L 07/25/21 05:58 Calcium 8.7 mg/dL (8.5-10.5) 07/25/21 05:58 Troponin T Baseline 6 ng/L (0-10) 07/23/21 13:18 Troponin T 120 Minute 6.00 ng/L (0-10) 07/23/21 15:16 Delta Troponin T 0 ABS# (0-10) 07/23/21 15:16 Urine HCG, Qual Negative (Negative) 07/23/21 05:50 Additional Data from Hospital Stay Please see consultation from hospitalist service with regards the patient's chest pain Procedures Performed ADDENDUMPlease note that patient's liver was shrunk in size and did not require a subxiphoid liver retractor to be inserted. The information of the liver retractor was entered by error. EMR Dragon/screwmaker automatic disclaimer: Much of this encounter note is an electronic screwmaker automatic/translation of spoken language to printed text.? The electronic translation of spoken language may permit erroneous, or at times, none sensical words or phrases to be inadvertently transcribed; although I have reviewed the note for such errors, some may still exist. Addendum Dictated By: Hussein Portillo MD Addendum Signed By: <Electronically signed by Hussein Portillo MD> Signed Date/Time: 07/25/21 1213 Addendum Cosigned By: Operative Report Date of procedure: July 23, 2021 Pre-op diagnosis: Preop Diagnosis? obesity ? Post-op diagnosis: The same Procedure done: Laparoscopic vertical sleeve gastrectomy and EGD Implants: Small piece of Surgicel towards the superior pole of the Specimens removed/disposition: Subtotal gastrectomy with sutures marked proximal with gastric sleeve Surgeon: Hussein Portillo MD Environmental Quality Analyst: Surgical Edwin Dailey Anesthesia: General ([employer]IOR [employer]ORAGE ADMINISTRATOR Corrina) Estimated blood loss (mL): 20 IV fluids (mL): 2,200 Urine output: 100 Procedure: Patient was identified in the holding area, appropriate pharmacologic DVT prophylaxis was given and preoperative IV fluid hydration, patient was then taken to the operating room where the patient was placed in supine position, intubated by anesthesia prophylactic antibiotics were given per protocol, Time- out was done verifying the patient's name/date of /planned procedure and destination after the procedure, all were in agreement.SCDs confirmed to be functioning, and beta kentrell protocol was confirmed. A Benson catheter was inserted by the circulating nurse revealing clear urine. A foot board was applied to secure the patient while the patient is placed in reversed Trendelenburg, all pressure points were padded, and the patient was appropriately secured to the table, anesthesia was asked to rotate the table back and forth to verify that the patient is appropriately secured, and that was the case. The abdomen was prepped and draped under the usual sterile technique.? A transverse incision was made with a 15 blade scalpel approximately 15 cm below the xiphoid process and 3 cm left of the midline. A 5 mm optical trocar port was placed under direct vision into the peritoneal cavity without initial evidence of injury to peritoneal structures upon entry. The peritoneal cavity was insufflated with carbon dioxide gas up to 15 mmHg pressure. A 45? angle laparoscopy was placed through the port into the peritoneal cavity there was no significant blood, fluid, or evidence of intra- abdominal injury under direct visualization, Longer trocars were then used; a 12 mm trocar port was placed in the right epigastric region and a fourth 5 mm trocar port was placed in the mid epigastric region more caudad than and medial to the previous port. A 5 mm trocar port was placed in the left lateral flank and additional 5 mm trocar was inserted midway between the left lateral flank trocar and the initial 5 mm trocar.? There after the index 5 mm trocar was switched to a 12 mm trocar under direct visualization after extending the skin incision. I lifted the omentum up to make sure there were no injuries encountered from the initial trocar insertion, the underlying transverse colon and small bowel viscera were normal, except for a very superficial tear of the mesentery of the proximal small bowel without bleeding but I elected to put at 2-0 silk suture secure hemostasis, there was no violation of the mesentery blood supply and the bowel maintained to be viable. A subxiphoid stab incision was made and dissection into the peritoneum with 5 mm obturator.? A grasping laparoscopic clamp was inserted through here and clamped to the right mat of the diaphragm to elevate the liver for the entirety of the case.? All trocars inserted were long arc trocars due to the thick layer of subcutaneous tissue that the patient has.Patient was then placed in the reversed Trendelenburg. Following this, the greater curvature of the stomach was freed from the omentum using the ENSEAL device.? This division included the short gastric vessels proximally.? This dissection was carried from approximately 4 cm-6 cm proximal to the pylorus and extending all the way up to the angle of Hiss. During this process the posterior aspect of the stomach was mobilized from the underlying peritoneum and the posterior aspect of the stomach was well exposed. With the greater curvature of the stomach exposed from within 4-6 cm of the pylorus and extending to the angle of Hiss, which also included the posterior stomach, a 40 Welsh standard template passed under direct vision down the esophagus, stomach, and into the first part of the duodenum by the anesthesia provider and under direct guidance and visualization by me, via the laparoscopy. Using the template 40 Welsh aligned along the lesser curvature of the stomach and all the way to the first part of the Duodenum, the 40 Welsh Bougie was used as a template the laparoscopic vertical gastric sleeve was performed starting from a point about 5 cm from the pylorus along the greater curvature. Using the [employer] Lounge Laparoscopic BALDEMAR linear cutting stapler with Lulu[employer] Lounge Endopath enforcement, a series of jaylon were used to transect the stomach in a vertical fashion along the left side of the template. Through the entire division of the stomach using the staplers, the template was always checked to be in good place and well aligned to the lesser curvature while dividing the stomach. This was carried all the way to the angle of Hiss. [place] 60 mm Green loads were used for the distal third of the stomach and Gold loads were used for the more proximal part of the stomach and then blue loads with reinforcement. All staplers were reinforced by Endopath. The staple line along the remaining tubularized stomach was tested for leaks and bleeding under direct vision as the 40 Welsh template was exchanged (and there was no evidence of blood on the tip of the template) by a standard diagnostic EGD via the mouth by my me after I scrubbed out, insufflation was achieved using CO2 gas and the staple line submerged under saline, meanwhile a clamp was applied distally onto the end of the tubularized stomach to allow insufflation test for leak. There was no evidence of leak .There was adequate hemostasis along the staple line.EGD was taken out at this point after deflation of the tubularized stomach. I scrubbed the back in. The transected partial stomach, which included the greater curvature, was removed from the peritoneum through the first 12 mm trocar site, and was sent for permanent pathology. Prior to closure of the fascia.? A final look laparoscopy identified no injuries or bleeding.? There was minimal oozing at the time of the dissection of the short gastrics earlier but that was controlled by using Enseal device and a small piece of Surgicel was added.? Towards the superior pole of the spleen Bilateral TAP (transversus abdominous plain peripheral nerve block) block using Exparel 20 mL Exparel,40 ml Normal saline,20 ml bupivacaine 0.25% 30 mL on each side injected, 20 mL injected the port sites. An interrupted #1 PDS suture on a granny needle suture passer was used to close the right epigastric and the other 12 mm trocar left of the midline fascial defects under direct visualization. The other trocars were removed under direct vision and no evidence of bleeding was identified. The pneumoperitoneum was decompressed. All skin incisions were irrigated with saline, then closed with jaylon, followed by application of sterile dressings. The patient was extubated and taken to the recovery room with normal vital signs. Benson catheter was maintained All counts of instruments, sponges and needles were completed at the end of the procedure I was present for the whole entire procedure Dictated By: Hussein Portillo MD Signed By: Hussein Poritllo MD Vitals Last Vital Signs Temp 98.3 F 07/25/21 11:21 Pulse 63 07/25/21 11:21 Resp 16 07/25/21 11:21 BP 132/83 07/25/21 11:21 Pulse Ox 90 07/25/21 11:21 Discharge Plan Discharge Patient Disposition: Home Condition: Stable Prescriptions: New Transderm-Scop 1 mg over 3 days patch 3 day 1 patch transdermal Q72H PRN (Reason: nausea and vomiting) Qty: 4 1RF hydrocodone-acetaminophen 5-325 mg tablet 1 tab PO Q6H PRN (Reason: pain) Qty: 28 0RF Lovenox 40 mg/0.4 mL syringe 40 mg SUBCUT DAILY 10 Days Qty: 4 0RF Rx Instructions: Starting administration 07/26/2021 Continued risperidone 0.5 mg tablet 0.5 mg PO BID 0RF levothyroxine 25 mcg capsule 75 mcg PO DAILY 0RF hydroxyzine HCl 25 mg tablet 25 mg PO TID PRN (Reason: Anxiety) 0RF Discontinued phentermine 37.5 mg capsule 37.5 mg PO DAILY 0RF Rx Instructions: must administer 30 minutes before or 1-2 hours after breakfast No Action ondansetron HCl 4 mg tablet 4 mg PO Q6H Qty: 30 2RF Discharge Orders: Discharge Order (Routine); Ordered 07/25/21 Ordered By: Hussein Portillo Referrals: Hussein Portillo MD [Physician] - 07/31/21 2:30 pm (Return to bariatric surgery office in 1 week) Discharge Diet: As Directed Discharge Activity: Limit activity as instructed Patient Instructions: Scopolamine (Absorbed through the skin), Hydrocodone/Acetaminophen (By mouth), Ondansetron (By mouth), Enoxaparin (By injection), How to Give a Subcutaneous Injection (GEN), Nutrition after Bariatric Surgery (DC), Laparoscopic Sleeve Gastrectomy (GEN), Opioid Safety Activity Restrictions/Additional Instructions: Post discharge instructions: 1. Patient can shower after 48 hours from surgery. Do not soak in bathtub, swimming pool or hot tub for 4 weeks after surgery. 2. Leave incisions open to air, do not apply triple antibiotic ointment or medications on the incisions. 3. Up and walking as tolerated Activity 4. Do not lift more than 5 pounds first 2 weeks after surgery and not more than 25 pounds 6 to 8 weeks after surgery. Driving 5. Do not operate heavy machinery or drive while using pain medications Diet Stage 1 When do I start this stage? The day after your surgery (Day 1). You will get to start this stage after you pass the upper GI study and/or methylene blue test. How long will I be on this stage? Day 1 thru day 2 or until you are discharged from the hospital. Goals: ? Drink 4 to 6 ounces of fluid per hour. ? Aim for a total of 64 ounces of fluid daily. Add the following food/beverages to your diet: Clear broth or bouillon 100% no sugar added apple, cranberry, or grape juice. Dilute with 1 part juice and 1 part water. No citrus justice (i.e. organe juice, grapefruit juice, etc.) Limit to 8 ounces per or less per day. Tea (do not add milk) Coffee (do not add milk or creamer) Sugar-free gelatin Sugar-free popsicles Sugar-free flavored beverages (Crystal Light?, Sugar-Free Charanjit-Aid?, Propel?, PowerAde Zero?, Vitamin Water 10?, Fruit?0?, Sob? Lean?, etc.) Artificial sweetener of your choice Stage 2 When do I start this stage? Day 3 (or once you are discharged from the hospital) How long will I be on this stage? Day 3 thru Day 13 Goals: ? Drink 4 to 6 ounces of fluid per hour. ? Aim for a total of 64 ounces of fluid daily. ? Aim to meet protein goals with liquid protein supplements Add the following food/beverages to your diet: Protein supplements (thin, water-based supplement may be easier to digest at first while milk-based supplements may feel ``heavy?? and uncomfortable at first) Milk: 1%, skim, light soy milk, or lactose-free milk Pain control Patient was given a prescription for hydrocodone Nausea Nausea is common after surgery, take nausea medications as needed and stay on a liquid bland diet until nausea resolves. Breathing Patient was encouraged and was given incentive spirometer to use at home 10 times an hour while awake Pharmacologic DVT prophylaxis Educating patient about pharmacologic DVT prophylaxis and administration of Lovenox 40 mg subcutaneous daily starting 07/26/2021. Call the office at [phone] during office hours or go the Emergency Room after hours for - ?Fever to 100.4 or greater ?Shaking chills ?Pain that increases over time ?Redness, warmth, or pus draining from incision sites ?Persistent nausea or inability to take in liquids Discharge Attestations Time Spent in Discharge Care*: greater than 30 min Specific Discharge Activities: educating patient and educating and/or supporting family/caregiver Status at Discharge: Cognitive status at discharge: cognitively intact , Behavioral status at discharge: cooperative , Functional status at discharge: independent ambulation , Overall status at discharge: patient is progressing back to baseline Quality Metrics Clinical Quality Measures [ No reported AMI, CVA or VTE this stay] Coding Level of Care Code Acute Chg FW DC note Diagnoses Status post laparoscopic sleeve gastrectomy Z98.84
[2021-07-25 14:26] VITALS: BP 132/83; PULSE 63; RESP 16; TEMP 36.8; O2SAT 90
--- NOTE | 2021-07-25 14:26 | PC.NURSE ---
Discharge education reviewed with patient and grandmother at bedside. No questions at this time and verbally acknowledges discharge plans. Reviewed education on injections and disposal of Lovenox injections.
== END 2021-07-25 14:44 | disposition home or self-care (01) | DRG 621 ==
LOC: MEDSURG 09:30
PROVIDERS: Admitting Provider Surgery; PCP Family Medicine; Visit Provider Surgery
PROC: 0DB64Z3 Excision of Stomach, Percutaneous Endoscopic Approach, Vertical (ICD-10-PCS; CPT 43775; principal; 2021-07-23 07:00)
PROC: 0DJ08ZZ Inspection of Upper Intestinal Tract, Via Natural or Artificial Opening Endoscopic (ICD-10-PCS; CPT 43235; 2021-07-23 07:00)
DX: E66.01 Morbid (severe) obesity due to excess calories (principal); Z68.42 Body mass index [BMI] 45.0-49.9, adult; R07.89 Other chest pain; G47.33 Obstructive sleep apnea (adult) (pediatric); G89.29 Other chronic pain; M54.9 Dorsalgia, unspecified; F41.9 Anxiety disorder, unspecified; R06.00 Dyspnea, unspecified; K21.9 Gastro-esophageal reflux disease without esophagitis; F32.A Depression, unspecified; E03.9 Hypothyroidism, unspecified; Z87.891 Personal history of nicotine dependence
CPT/HCPCS: 36410; 36415; 51702; 71045; 74240; 80048; 81025; 84484; 84703; 85014; 85018; 88309; 93005; 96372; C9113; C9290; J0330; J0690; J1100; J1170; J1200; J1644; J2250; J2270; J2370; J2405; J2704; J2710; J3010; J3490; J7030; Q9963

== ENCOUNTER → 2021-07-31 14:15 | Outpatient (BNVA) | payer MEDICAID, SELFPAY | PROVIDERS: PCP Family Medicine; Visit Provider Surgery | DX: Z98.84 Bariatric surgery status (principal) ==

== ENCOUNTER → 2021-08-15 13:27 | Outpatient (BNVA) | payer MEDICAID, SELFPAY | PROVIDERS: PCP Family Medicine; Visit Provider Surgery | DX: Z98.84 Bariatric surgery status (principal); K59.00 Constipation, unspecified; E66.01 Morbid (severe) obesity due to excess calories; Z68.42 Body mass index [BMI] 45.0-49.9, adult; E88.1 Lipodystrophy, not elsewhere classified | CPT/HCPCS: 99024 ==

== ENCOUNTER → 2021-09-25 12:45 | Outpatient (BNVA) | payer MEDICAID, SELFPAY | PROVIDERS: PCP Family Medicine; Visit Provider Surgery | DX: Z98.84 Bariatric surgery status (principal); K59.00 Constipation, unspecified | CPT/HCPCS: 99024 ==

== ENCOUNTER → 2021-11-20 09:45 | Outpatient (BNVA) | payer MEDICAID, SELFPAY | PROVIDERS: PCP Family Medicine; Visit Provider Surgery | DX: Z91.11 Patient's noncompliance with dietary regimen (principal); Z98.84 Bariatric surgery status | CPT/HCPCS: 36415; 80053; 82607; 82652; 83540; 83550; 83690; 84425; 84443; 84630; 85025 ==